=== PATIENT | female | born 1955 | race African-American/Black ===

== ENCOUNTER 2019-09-19 05:29 | Inpatient (IN) | payer OTHER ==
[~2019-09-19] VITALS: Ht 154.9 cm; Wt 79.4 kg
[2019-09-19] MEDS ORDERED: SODIUM CHLORIDE 0.9% 1,000 ML IV ONE ×2 (07:01)
[2019-09-19] MEDS ORDERED: ONDANSETRON HCL 4 MG/2 ML VIAL IV ONE (07:15)
[2019-09-19 07:25] LABS: Basophils # (auto) 0.1 uL; Basophils % (auto) 1.1 % (0.0-2.0); Eosinophils # (auto) 0 uL; Eosinophils % (auto) 0.1 % (0.0-7.0); Hematocrit 42.4 % (36.0-46.0); Hemoglobin 14.2 g/dL (12.2-16.2); Lymphocytes # (auto) 1.3 uL; Lymphocytes % (auto) 19.4 % (10.0-50.0); Mean Corpuscular Hemoglobin 27.7 pg (28.0-32.0); Mean Corpuscular Hgb Conc. 33.4 g/dL (32.0-36.0); Mean Corpuscular Volume 83.1 fL (80.0-100.0); Monocytes # (auto) 0.3 uL; Monocytes % (auto) 4.8 % (0.0-12.0); Neutrophils # (auto) 4.9 uL; Neutrophils % (auto) 74.6 % (37.0-80.0); Nucleated Red Blood Cells % 0.1 %; Platelet Count (auto) 250 10^3/uL (140-450); Red Cell Distribution Width 15.7 % (11.8-14.3); White Blood Cell 6.6 10^3/uL (4.4-10.8)
[2019-09-19 07:41] LABS: BUN/Creatinine Ratio 18.2; Calcium 9.2 mg/dL (8.5-10.1); Potassium 3.4 mmol/L (3.5-5.1)
[2019-09-19 07:44] LABS: Bilirubin, Total 0.5 mg/dL (0.2-1.0); Total Protein 8.5 g/dL (6.4-8.2)
[2019-09-19 08:41] LABS: INR 1.01 (0.9-1.15); Partial Thromboplastin Time 20.7 sec (23.64-32.05)
[2019-09-19] MEDS ORDERED: MORPHINE SULFATE 4 MG/ML SYR/VIAL IV ONE (09:15)
[2019-09-19] MEDS ORDERED: LORazepam 2MG/ML-1ML VIAL IV ONE (11:30)
[2019-09-19] MEDS ORDERED: PIPERACILLIN-TAZOB 3.375GM 100 ML IV ONE (11:45)
[2019-09-19] MEDS ORDERED: NITROGLYCERIN 0.4 MG SL TAB SL PRN (12:30)
[2019-09-19] MEDS ORDERED: PANTOPRAZOLE 40 MG TAB PO SCH (12:30)
[2019-09-19] MEDS ORDERED: SOD CHL 0.9%/ KCL 20MEQ 1,000 ML IV SCH (12:30)
[2019-09-19] MEDS ORDERED: MORPHINE SULF INJ 2 MG/ML SYRINGE 1ML IV PRN (12:30)
[2019-09-19 12:47] LABS: Cholesterol 249 mg/dL (< 200)
[2019-09-19 12:50] LABS: HDL Cholesterol 83 mg/dL (40-59); LDL Cholesterol 143 mg/dL (< 100); Triglycerides 91 mg/dL (< 150)
[2019-09-19] MEDS: LABETALOL HCL 5 MG/ML ML 20ML VIAL IV PRN ×2 (14:33→22:00)
[2019-09-19] MEDS: metroNIDAZOLE 500MG/100ML 100 ML IV SCH (15:12)
[2019-09-19 15:44] LABS: Urine Bacteria FEW /hpf (None Seen); Urine Blood 2+ /uL (Negative); Urine Mucus FEW (None Seen); Urine WBC 1 /hpf (0 - 5)
[2019-09-19] MEDS: HYDROmorphone HCL 2 MG/ML VL IV PRN ×2 (16:44→22:09)
[2019-09-19] MEDS: LEVOFLOXACIN 500MG 100 ML IV SCH (17:50)
[2019-09-19] MEDS: ACETAMINOPHEN 325 MG TAB PO PRN (18:07)
--- NOTE | 2019-09-19 19:49 | NUR ---
received pt from day rn poc reviewed
[2019-09-19] MEDS: busPIRone HCL 10 MG TAB PO SCH (22:02)
[2019-09-19] MEDS: LISINOPRIL 20 MG TAB PO SCH (22:09)
[2019-09-19 23:04] VITALS: BP 161/97
[2019-09-20] VITALS (7 sets, daily range): BP systolic 129–189; BP diastolic 70–106
--- NOTE | 2019-09-20 00:23 | NUR ---
b/p 161/97 labetalol given as ordered
--- NOTE | 2019-09-20 00:24 | NUR ---
resting comfortable after pain med given
[2019-09-20] MEDS: SUCRALFATE 1 GM/10 ML ORAL SUSP GT SCH ×5 (00:30→17:00)
[2019-09-20] MEDS: metroNIDAZOLE 500MG/100ML 100 ML IV SCH ×4 (00:35→22:08)
[2019-09-20] MEDS: PANTOPRAZOLE 40 MG TAB PO SCH ×3 (00:35→21:01)
[2019-09-20] MEDS: ONDANSETRON HCL 4 MG/2 ML VIAL IV PRN ×3 (03:33→17:37)
[2019-09-20] MEDS: HYDROmorphone HCL 2 MG/ML VL IV PRN ×2 (04:09→09:36)
[2019-09-20] MEDS ORDERED: LISI40TA PO (06:38)
[2019-09-20] MEDS ORDERED: METH750T3 PO (06:40)
[2019-09-20] MEDS ORDERED: NALO4SPR2 (06:40)
[2019-09-20 06:44] LABS: Basophils # (auto) 0 uL; Basophils % (auto) 0.5 % (0.0-2.0); Eosinophils # (auto) 0 uL; Eosinophils % (auto) 0.3 % (0.0-7.0); Hematocrit 39.6 % (36.0-46.0); Hemoglobin 13.3 g/dL (12.2-16.2); Lymphocytes # (auto) 1.8 uL; Lymphocytes % (auto) 27.5 % (10.0-50.0); Mean Corpuscular Hemoglobin 27.7 pg (28.0-32.0); Mean Corpuscular Hgb Conc. 33.5 g/dL (32.0-36.0); Mean Corpuscular Volume 82.8 fL (80.0-100.0); Monocytes # (auto) 0.5 uL; Monocytes % (auto) 8.2 % (0.0-12.0); Neutrophils # (auto) 4.1 uL; Neutrophils % (auto) 63.5 % (37.0-80.0); Nucleated Red Blood Cells % 0.1 %; Platelet Count (auto) 230 10^3/uL (140-450); Red Blood Cells 4.78 10^6/uL (4.0-5.20); Red Cell Distribution Width 15.9 % (11.8-14.3); White Blood Cell 6.4 10^3/uL (4.4-10.8)
[2019-09-20] MEDS ORDERED: MIRT30TA OR (06:44)
[2019-09-20] MEDS ORDERED: QUET200T44 PO (06:44)
[2019-09-20] MEDS ORDERED: GABA-339 PO (06:44)
[2019-09-20] MEDS ORDERED: BUSP5TAB51 PO (06:48)
[2019-09-20 06:56] LABS: Potassium 3.3 mmol/L (3.5-5.1)
[2019-09-20 07:02] LABS: BUN/Creatinine Ratio 13.1; Calcium 8.7 mg/dL (8.5-10.1)
--- NOTE | 2019-09-20 07:30 | NUR ---
Opening Shift Note Assumed care of patient, awake and alert. No S/S of distress/SOB or pain. Instructed on POC and to call for assist PRN, will continue to monitor for changes Q1hr and PRN.
[2019-09-20] MEDS: LEVOFLOXACIN 500MG 100 ML IV SCH (09:36)
[2019-09-20] MEDS: busPIRone HCL 10 MG TAB PO SCH ×2 (09:37→21:01)
[2019-09-20] MEDS: LISINOPRIL 20 MG TAB PO SCH ×2 (09:37→22:22)
[2019-09-20] MEDS ORDERED: POTASSIUM EFFERVESENT TAB 25 MEQ GT ONE (14:30)
--- NOTE | 2019-09-20 17:30 | NUR ---
PT STATED SHE WANTS TO GO HOME AND WOULD LIKE TO TRY TO EAT REGULAR FOOD PER MD'S ORDER. PT WAS GIVEN A SANDWICH BUT SHE WAS UNABLE TO TOLERATE IT AND STARTED COMPLAINING OF SEVERE UPSET/PAIN ON HER STOMACH. SHE ALSO REFUSED CARAFATE AND POTASSIUM EFFERVESCENT THAT WAS ORDERED. MAGY CURTIS MD.
--- NOTE | 2019-09-20 17:30 | NUR ---
PAGED RE: PT'S STATUS. WAITING FOR CALL BACK
[2019-09-20] MEDS: LABETALOL HCL 5 MG/ML ML 20ML VIAL IV PRN (17:39)
[2019-09-20] MEDS ORDERED: MORPHINE SULF INJ 2 MG/ML SYRINGE 1ML IV PRN (17:45)
[2019-09-20] MEDS ORDERED: ONDANSETRON HCL 4 MG/2 ML VIAL IV PRN (17:45)
--- NOTE | 2019-09-20 17:52 | NUR ---
SPOKE TO DR KELVIN BEAULIEU MD WITH PT'S STATUS. NEW ORDERS RECEIVED AND CARRIED OUT. PT TO HAVE EGD TOMORROW SCHEDULED.
--- NOTE | 2019-09-20 19:19 | NUR ---
CLOSING NOTES PT RESTING IN BED, EYES CLOSED, AROUSABLE. PER PT, SHE'S JUST NOW STARTING TO FEEL BETTER. REPORT GIVEN TO KIKI.
--- NOTE | 2019-09-20 19:20 | NUR ---
Opening shift note Patient resting in bed with even and unlabored respirations. Patient heard crying and moaning. Patient stated "I'm in so much pain. No one is listening to me. I can show you the prescription receipts of the medications I get. I need something." Prescription transcript provided by the patient for "30mg Oxycodone Immediate Release TID". Will notify MD of pain management request. Instructed patient on POC, fall precautions and to call for assistance as needed. Patient verbalized understanding. Fall precautions in place with bed in lowest locked position with x2 side rails up and call light within reach. Will continue to monitor q1hr & PRN.
--- NOTE | 2019-09-20 19:37 | NUR ---
RE: elevated BP & PRN BP medication Contacted on-call MD for Dr. Smith to notify of elevated BP and PRN BP medication while a med/surg patient. Order received and read back to verify. Order received by .
[2019-09-20] MEDS ORDERED: cloNIDine HCL 0.1 MG TAB PO PRN (19:45)
[2019-09-20] MEDS ORDERED: POTASSIUM CHL 20MEQ/100ML 100 ML IV ONE (20:00)
--- NOTE | 2019-09-20 20:27 | NUR ---
Contacted RE: Pain management/sleeping pill request Patient states "They haven't restarted me on my home medications that I use for pain and for sleeping. What they are giving me isn't work. I haven't slept for 3 days. I'm in horrible pain." Updated Dr. Arriola. Orders received and read back to verify. Addendum: 09/21/19 at 0737 by Yvette Abdi RN Note amended to include that 2mg Morphine IVP Q4hr PRN to remain ordered per Dr. Grayson Arriola due to patient being NPO after midnight.
[2019-09-20] MEDS: OXYCODONE HCL 5MG TAB PO PRN (21:00)
[2019-09-20] MEDS ORDERED: SUCRALFATE 1 GM/10 ML ORAL SUSP PO SCH (21:00)
[2019-09-20] MEDS ORDERED: QUEtiapine FUMARATE 100 MG TAB PO SCH (22:00)
--- NOTE | 2019-09-20 22:00 | NUR ---
Patient reports pain has improved Patient rates pain 5/10. Patient resting with even and unlabored respirations, no distress noted.
[2019-09-20] MEDS: SUCRALFATE 1 GM/10 ML ORAL SUSP PO SCH (22:02)
--- NOTE | 2019-09-20 22:30 | NUR ---
RE: potassium IV stopped Patient reports severe burning with administration of K-rider. Medication rate decreased for comfort. Patient continued to report burning and requested medication be stopped. Patient stated "I can't take it. It's burning too bad." Patient's maintenance fluids have 20 mEq Potassium. Patient tolerating maintenance fluids well. Will continue to monitor q1hr & PRN.
[2019-09-21] MEDS: D5W/ SOD CHL 0.9%/KCL 20MEQ 1,000 ML IV SCH ×3 (04:36→16:00)
--- NOTE | 2019-09-21 04:50 | NUR ---
Patient resting in bed Eyes closed. Respirations even and unlabored, no distress noted.
[2019-09-21 05:26] LABS: INR 1.07 (0.9-1.15); Partial Thromboplastin Time 23.9 sec (23.64-32.05)
[2019-09-21 05:31] LABS: BUN/Creatinine Ratio 11.8; Calcium 8.3 mg/dL (8.5-10.1); Potassium 3.2 mmol/L (3.5-5.1)
[2019-09-21 05:39] VITALS: BP 128/74
--- NOTE | 2019-09-21 06:40 | NUR ---
IV discontinued/IV started IV to the left EJ discontinued due to infiltration. IV removed with clean technique with catheter intact. Dressing applied. Patient tolerated well, no trauma to site. 22G IV started to the right upper arm with clean technique. IV secured. IV education provided. Patient verbalized understanding.
[2019-09-21] MEDS: metroNIDAZOLE 500MG/100ML 100 ML IV SCH ×2 (06:41→14:28)
[2019-09-21] MEDS ORDERED: MORPHINE SULF INJ 2 MG/ML SYRINGE 1ML IV PRN (06:45)
--- NOTE | 2019-09-21 06:51 | NUR ---
Closing note patient resting in bed with even and unlabored respirations, no distress noted. Fall precautions in place with bed in lowest locked position with call light within reach.
[2019-09-21] MEDS: SUCRALFATE 1 GM/10 ML ORAL SUSP PO SCH ×3 (07:00→17:46)
--- NOTE | 2019-09-21 07:27 | NUR ---
Care endorsed to MARK ANTHONY Nova.
[2019-09-21] MEDS ORDERED: SODIUM CHLORIDE LOCK 10 ML ONE (08:15)
[2019-09-21] MEDS ORDERED: diphenhdrAMINE HCL 50 MG/1 ML VL ONE (08:16)
[2019-09-21] MEDS ORDERED: LIDOCAINE VISCOUS 2% 15ML UD ONE (08:27)
[2019-09-21 09:33] VITALS: BP 152/87
--- NOTE | 2019-09-21 09:38 | NUR ---
PT TRANSPORTED TO GI LAB PRE OP FRO PROCEDURE. NO S/S OF DISTRESS AT MOMENT. RN RECEIVED PT.
[2019-09-21] MEDS: MIDAZOLAM HCL 5 MG/ML-1ML VIAL ONE ×2 (09:48→09:58)
[2019-09-21] MEDS: fentaNYL CITRATE 100 MCG/2 ML VL ONE ×3 (09:48→10:00)
[2019-09-21] MEDS ORDERED: MIDAZOLAM HCL 5 MG/ML-1ML VIAL ONE (10:00)
[2019-09-21] MEDS ORDERED: fentaNYL CITRATE 100 MCG/2 ML VL ONE (10:00)
--- NOTE | 2019-09-21 10:46 | NUR ---
PT BACK TO UNIT. AWAKE, ALERT, ORIENTEDx4. DENIES DISCOMFORT AT MOMENT. BED IN LOWEST POSITION, CALL LIGHT WITHIN REACH. WILL CONTINUE TO MONITOR.
[2019-09-21] MEDS: busPIRone HCL 10 MG TAB PO SCH (11:05)
[2019-09-21] MEDS: PANTOPRAZOLE 40 MG TAB PO SCH (11:05)
[2019-09-21] MEDS: LEVOFLOXACIN 500MG 100 ML IV SCH (11:06)
[2019-09-21] MEDS: LISINOPRIL 20 MG TAB PO SCH (11:06)
[2019-09-21] MEDS: OXYCODONE HCL 5MG TAB PO PRN (11:28)
[2019-09-21 14:08] VITALS: BP 155/97
[2019-09-21] MEDS: ACETAMINOPHEN 325 MG TAB PO PRN (15:26)
[2019-09-21 16:20] VITALS: BP 147/87
--- NOTE | 2019-09-21 18:28 | NUR ---
DISCAHRGE INSTRUCTIONS PROVIDED TO PT. PT VERBALIZED UNDERSTANDING FOR PRESCRIPTION ORDER AND FOLLOW UP APPOINTMENT. EDUCATIONAL MATERIAL PROVIDED TO PT, ALL QUESTIONS AND CONCERNS ADDRESSED. IV CATHETER DC'D TO RIGHT HAND #[id number]. CATHETER INTACT, NO PHLEBITIS. PT AWAITING TRANSPORTATION.
--- NOTE | 2019-09-21 19:00 | NUR ---
PT SAFELY ESCORTED OUT OF UNIT VIA WHEELCHAIR. NO S/S OF DISTRESS. TRANSPORTATION PROVIDED VIA [facility].
== END 2019-09-21 19:00 | disposition home or self-care (01) | DRG 392 ==
LOC: ER 05:29 → OVERFLOW 05:30 → CENTRAL 18:18
PROVIDERS: ADMIT Nurse Practitioner Acute Care; ATTEND Hospitalist
PROC: 0DB68ZX Excision of Stomach, Via Natural or Artificial Opening Endoscopic, Diagnostic (ICD-10-PCS; principal; 2019-09-21 09:45)
DX: K29.00 Acute gastritis without bleeding (principal); K52.9 Noninfective gastroenteritis and colitis, unspecified; K20.9 Esophagitis, unspecified; I10 Essential (primary) hypertension; E66.9 Obesity, unspecified; E87.6 Hypokalemia; E78.00 Pure hypercholesterolemia, unspecified; F41.9 Anxiety disorder, unspecified; Z68.33 Body mass index [BMI] 33.0-33.9, adult; E78.5 Hyperlipidemia, unspecified; G89.29 Other chronic pain; Z79.891 Long term (current) use of opiate analgesic; M54.5 Low back pain; K44.9 Diaphragmatic hernia without obstruction or gangrene
CPT/HCPCS: 36415; 43239; 71045; 74176; 80048; 80053; 80061; 81001; 84484; 85025; 85610; 85730; 87804; 96365; 96368; 96375; G0378; J1956; J2250; J2405; J2543; J3480; J3490

== ENCOUNTER 2022-05-02 00:21 | Inpatient (IN) | payer OTHER ==
[~2022-05-02] VITALS: Ht 172.7 cm; Wt 89.1 kg
[~2022-05-02 00:21] MED LIST: BUSP5TAB51 PO; GABA-339 PO; LISI40TA11 PO; METH750T22 PO; MIRT-66 OR; NALO4SPR2; QUET200T45 PO
[2022-05-02] MEDS ORDERED: SODIUM CHLORIDE 0.9% 500 ML IV ONE (01:30)
[2022-05-02] MEDS ORDERED: fentaNYL CITRATE 100 MCG/2 ML VL IV ONE ×2 (01:45→04:00)
[2022-05-02] MEDS ORDERED: ONDANSETRON HCL 4 MG/2 ML VIAL IV ONE ×2 (01:45→05:30)
[2022-05-02 01:51] LABS: Basophils # (auto) 0 10 ^3/uL (0-0.2); Basophils % (auto) 0.3 % (0.0-2.0); Eosinophils # (auto) 0 10 ^3/uL (0-0.8); Eosinophils % (auto) 0.2 % (0.0-7.0); Hematocrit 47.3 % (36.0-46.0); Hemoglobin 16.1 g/dL (12.2-16.2); Lymphocytes % (auto) 9.1 % (10.0-50.0); Mean Corpuscular Hemoglobin 28.5 pg (28.0-32.0); Mean Corpuscular Volume 83.9 fL (80.0-100.0); Monocytes # (auto) 0.4 10 ^3/uL (0-1.3); Monocytes % (auto) 3.8 % (0.0-12.0); Neutrophils # (auto) 9.4 10 ^3/uL (1.6-8.6); Neutrophils % (auto) 86.6 % (37.0-80.0); Nucleated Red Blood Cells % 0.1 %; Red Blood Cells 5.64 10^6/uL (4.0-5.20); Red Cell Distribution Width 16.5 % (11.8-14.3); White Blood Cell 10.8 10^3/uL (4.4-10.8)
[2022-05-02 02:28] LABS: Alanine Aminotransferase 21 U/L (13-56); Albumin 4.2 g/dL (3.4-5.0); Anion Gap 12 (5-15); Aspartate Aminotransferase 25 U/L (15-37); BUN/Creatinine Ratio 13.9; Blood Urea Nitrogen 14 mg/dL (7-18); Calcium 9.1 mg/dL (8.5-10.1); Carbon Dioxide 21 mmol/L (21-32); Chloride 108 mmol/L (98-107); GFR African American 70 mL/min; GFR Non-African American 58 mL/min; Glucose 128 mg/dL (74-106); Lipase 178 U/L (73-393); Potassium 4.1 mmol/L (3.5-5.1); Sodium 141 mmol/L (136-145)
[2022-05-02 02:30] LABS: Alkaline Phosphatase 105 U/L (45-117); Bilirubin, Total 0.4 mg/dL (0.2-1.0); Total Protein 8.9 g/dL (6.4-8.2)
[2022-05-02] MEDS ORDERED: PIPERACILLIN-TAZOB 3.375GM 100 ML IV ONE (05:15)
[2022-05-02 05:21] LABS: Urine Bacteria NONE SEEN /hpf (None Seen); Urine Blood 1+ /uL (Negative); Urine Specific Gravity 1.015 (1.001-1.035); Urine WBC <1 /hpf (0 - 5)
[2022-05-02] MEDS ORDERED: ACETAMINOPHEN 325 MG TAB PO PRN (06:00)
[2022-05-02] MEDS ORDERED: LORazepam 0.5 MG TAB PO PRN (06:00)
[2022-05-02] MEDS ORDERED: HYDROcodone-ACET 5/325MG TAB PO PRN (06:00)
[2022-05-02] MEDS: ACCU-CHEK COMFORT CURVE STRIP VI SCH ×3 (06:00→18:07)
[2022-05-02] MEDS ORDERED: DOCUSATE SOD 100 MG CAP PO PRN (06:00)
[2022-05-02] MEDS ORDERED: DEXTROSE (50%) 50ML SYRG IV PRN (06:00)
[2022-05-02] MEDS: PIPERACILLIN-TAZOB 3.375GM 100 ML IV SCH ×2 (06:00→21:43)
[2022-05-02] MEDS ORDERED: ONDANSETRON HCL 4 MG/2 ML VIAL IV PRN (06:00)
[2022-05-02] MEDS ORDERED: MORPHINE SULFATE INJ 2 MG/ml SYRG IV PRN (06:00)
[2022-05-02] MEDS ORDERED: IOHEXOL 300 MG/ML 100ML BOTTLE IJ ONE ×2 (07:06→12:25)
[2022-05-02] MEDS ORDERED: HALOPERIDOL LACTATE 5 MG/ML INJ VIAL IM ONE (07:45)
[2022-05-02] MEDS: InsuLIN REG 1unit/0.01ml Soln (100units/ml) SC SCH ×3 (07:55→17:29)
[2022-05-02] MEDS: SODIUM CHLORIDE 0.9% 1,000 ML IV SCH ×2 (12:27→23:59)
[2022-05-02] MEDS: MORPHINE SULFATE INJ 2 MG/ml SYRG IV PRN ×3 (12:37→22:03)
[2022-05-02] MEDS: OXYCODONE W/ ACETAMINOPHEN 5/325MG TABLET PO PRN ×2 (14:30→18:50)
[2022-05-02] MEDS ORDERED: LISINOPRIL 10 MG TAB PO ONE (21:15)
[2022-05-02 22:00] VITALS: BP 182/109
[2022-05-02] MEDS: hydrALAZINE HCL 20 MG/ML VL IV PRN (22:13)
[2022-05-03] MEDS ORDERED: TEMAZEPAM 15 MG CAP PO ONE (02:00)
[2022-05-03] MEDS: hydrALAZINE HCL 20 MG/ML VL IV PRN (04:45)
[2022-05-03] MEDS: MORPHINE SULFATE INJ 2 MG/ml SYRG IV PRN (04:45)
[2022-05-03 05:00] VITALS: BP 167/103
[2022-05-03] MEDS: InsuLIN REG 1unit/0.01ml Soln (100units/ml) SC SCH ×4 (06:00→18:00)
[2022-05-03] MEDS: ACCU-CHEK COMFORT CURVE STRIP VI SCH ×4 (06:33→18:09)
[2022-05-03] MEDS: PIPERACILLIN-TAZOB 3.375GM 100 ML IV SCH ×2 (06:34→13:28)
[2022-05-03 06:53] VITALS: BP 168/98
[2022-05-03] MEDS ORDERED: QUET50TA PO (06:53)
[2022-05-03 07:13] LABS: Basophils # (auto) 0 10 ^3/uL (0-0.2); Basophils % (auto) 0.5 % (0.0-2.0); Eosinophils # (auto) 0 10 ^3/uL (0-0.8); Hematocrit 46.7 % (36.0-46.0); Hemoglobin 15.9 g/dL (12.2-16.2); Lymphocytes # (auto) 1.3 10 ^3/uL (0.4-5.4); Lymphocytes % (auto) 15.9 % (10.0-50.0); Mean Corpuscular Hemoglobin 28.7 pg (28.0-32.0); Mean Corpuscular Hgb Conc. 34.1 g/dL (32.0-36.0); Mean Corpuscular Volume 84.1 fL (80.0-100.0); Monocytes # (auto) 0.7 10 ^3/uL (0-1.3); Monocytes % (auto) 8.3 % (0.0-12.0); Neutrophils # (auto) 6.2 10 ^3/uL (1.6-8.6); Neutrophils % (auto) 75.3 % (37.0-80.0); Nucleated Red Blood Cells % 0.1 %; Potassium 3.1 mmol/L (3.5-5.1); Red Blood Cells 5.56 10^6/uL (4.0-5.20); Red Cell Distribution Width 15.9 % (11.8-14.3); White Blood Cell 8.2 10^3/uL (4.4-10.8)
[2022-05-03 07:20] LABS: BUN/Creatinine Ratio 17.6
[2022-05-03] MEDS: OXYCODONE W/ ACETAMINOPHEN 5/325MG TABLET PO PRN (09:19)
[2022-05-03 09:22] VITALS: BP 190/97
[2022-05-03] MEDS ORDERED: LISINOPRIL 10 MG TAB PO SCH (10:00)
[2022-05-03] MEDS ORDERED: POTASSIUM CHL 20 Meq TABLET PO ONE (11:45)
[2022-05-03 13:00] VITALS: BP 153/93
[2022-05-03] MEDS: SODIUM CHLORIDE 0.9% 1,000 ML IV SCH (14:34)
[2022-05-03 17:24] VITALS: BP 169/111
== END 2022-05-03 17:52 | disposition home or self-care (01) | DRG 392 ==
LOC: ER 00:21 → EDBD 00:21 → OVERFLOW 05:46 → CENTRAL 19:45
PROVIDERS: ADMIT Hospitalist; ATTEND Hospitalist
DX: R10.84 Generalized abdominal pain (principal); F11.23 Opioid dependence with withdrawal; M54.50 Low back pain, unspecified; R09.02 Hypoxemia; I10 Essential (primary) hypertension; G89.29 Other chronic pain; F41.9 Anxiety disorder, unspecified; E78.5 Hyperlipidemia, unspecified; Z20.822 Contact with and (suspected) exposure to COVID-19; R19.7 Diarrhea, unspecified; R11.2 Nausea with vomiting, unspecified
CPT/HCPCS: 36415; 36600; 71045; 74176; 74177; 80048; 80053; 80061; 81001; 82805; 82962; 83036; 83605; 83690; 83880; 84484; 85025; 93005; 96361; 96365; 96372; 96375; 96376; G0378; J1815; J2405; J2543